=== PATIENT | male | born 1940 | race Caucasian/White ===

== ENCOUNTER 2019-03-02 09:51 | Inpatient (IN) | payer MEDICARE, BC ==
[~2019-03-02] VITALS: Ht 177.8 cm; Wt 97.7 kg
[2019-03-02 10:26] LABS: BASOPHILS % (AUTO) 0.7 % (0-1); EOSINOPHILS # (AUTO) 0.1 X10'3 (0-0.9); EOSINOPHILS % (AUTO) 2.6 % (0-6); HEMOGLOBIN 14.3 g/dl (14.0-17.9); LYMPHOCYTES # (AUTO) 1.1 X10'3 (1.1-4.8); LYMPHOCYTES % (AUTO) 18.6 % (21-51); MEAN CORPUSCULAR HEMOGLOBIN 31.6 PG (27.0-31.0); MEAN CORPUSCULAR HGB CONC 32.5 g/dL (33.0-36.5); MEAN CORPUSCULAR VOLUME 97.1 FL (78-98); MEAN PLATELET VOLUME 8.6 FL (7.4-10.4); MONOCYTES # (AUTO) 0.7 X10'3 (0-0.9); MONOCYTES % (AUTO) 12.9 % (2-12); NEUTROPHILS # (AUTO) 3.7 X10'3 (1.8-7.7); NEUTROPHILS % (AUTO) 65.2 % (42-75); PLATELET COUNT 193 X10'3 (140-440); RED BLOOD COUNT 4.53 X10'6 (4.70-6.10); RED CELL DISTRIBUTION WIDTH 13.5 % (11.5-14.5); WHITE BLOOD COUNT 5.7 X10'3 (4.5-11.0)
[2019-03-02 10:36] LABS: PARTIAL THROMBOPLASTIN TIME 31 SECONDS (22-32)
--- NOTE | 2019-03-02 10:47 | NUR ---
pt getting xray, ct done
--- NOTE | 2019-03-02 10:48 | NUR ---
pt going to CTA
--- NOTE | 2019-03-02 10:50 | NUR ---
arrived to bed 3 for stroke alert. At this time pt is symptom free, nihss 0. Discussed with Dr. Pedraza, will hold off on CTA until after neuro consult.
--- NOTE | 2019-03-02 10:53 | NUR ---
md states pt doesnt need monitoring going to cta. pt is stable
[2019-03-02 11:10] LABS: ALANINE AMINOTRANSFERASE 37 U/L (12-78); ALBUMIN/GLOBULIN RATIO 1.1 (1.1-1.5); ALKALINE PHOSPHATASE 45 IU/L (46-116); ANION GAP 8 (8-16); ASPARTATE AMINO TRANSFERASE 22 U/L (10-37); BILIRUBIN,TOTAL 0.5 MG/DL (0.1-1.0); BLOOD UREA NITROGEN 24 MG/DL (7-18); BUN/CREATININE RATIO 22.2 (5.4-32.0); CALCIUM 9.2 MG/DL (8.5-10.1); CHLORIDE 107 MMOL/L (99-107); CREATININE 1.08 MG/DL (0.60-1.10); GLUCOSE 106 MG/DL (70-104); POTASSIUM 3.8 MMOL/L (3.5-5.1); SODIUM 143 MMOL/L (135-145); TOTAL CARBON DIOXIDE 27.8 MMOL/L (24-32); TOTAL PROTEIN 7.5 G/DL (6.4-8.2); eGFR 66 ML/MIN
--- NOTE | 2019-03-02 11:15 | NUR ---
Telemedicine consult with [facility] Dr. Rider. NIHSS remains 0. He recommends admission with routine workup for these TIA symptoms. ASA, MRI, MRA, requested. CTA only needed if change in symptoms or unable to obtain MRA.
--- NOTE | 2019-03-02 11:26 | NUR ---
neuro consulting current elevating pt
[2019-03-02] MEDS ORDERED: aspirin 325mg tablet PO ONE (11:55)
[2019-03-02] MEDS ORDERED: ATEN50TA PO ×2 (12:15→14:00)
[2019-03-02] MEDS ORDERED: acetaminophen 325mg tablet PO PRN ×2 (12:50)
[2019-03-02] MEDS ORDERED: HYDROcodone/acetaminophen 5mg/325mg tablet PO PRN (12:50)
[2019-03-02] MEDS ORDERED: mag hydrox/Alum hydrox/simeth 30ml oral suspension PO PRN (12:50)
[2019-03-02] MEDS ORDERED: ondansetron/PF 4mg/2ml inj IV PRN (12:50)
[2019-03-02] MEDS ORDERED: magnesium hydroxide 30ml (MOM) UD suspension PO PRN (12:50)
[2019-03-02 13:24] LABS: CHOLESTEROL 163 MG/DL (0-200); HDL CHOLESTEROL 54 MG/DL (35-60); LDL CHOLESTEROL 101 MG/DL (50-100); TRIGLYCERIDES 71 MG/DL (20-135)
[2019-03-02 22:00] VITALS: BP 150/68
[2019-03-03 02:00] VITALS: BP 127/69
[2019-03-03 06:00] VITALS: BP 143/64
[2019-03-03 06:18] LABS: BASOPHILS % (AUTO) 0.6 % (0-1); EOSINOPHILS # (AUTO) 0.2 X10'3 (0-0.9); HEMATOCRIT 39.6 % (42.0-52.0); HEMOGLOBIN 13.6 g/dl (14.0-17.9); LYMPHOCYTES % (AUTO) 21.3 % (21-51); MEAN CORPUSCULAR HEMOGLOBIN 32.7 PG (27.0-31.0); MEAN CORPUSCULAR HGB CONC 34.3 g/dL (33.0-36.5); MEAN CORPUSCULAR VOLUME 95.4 FL (78-98); MEAN PLATELET VOLUME 8.8 FL (7.4-10.4); MONOCYTES # (AUTO) 0.6 X10'3 (0-0.9); MONOCYTES % (AUTO) 12.9 % (2-12); NEUTROPHILS # (AUTO) 2.8 X10'3 (1.8-7.7); NEUTROPHILS % (AUTO) 61.2 % (42-75); PLATELET COUNT 151 X10'3 (140-440); RED BLOOD COUNT 4.15 X10'6 (4.70-6.10); RED CELL DISTRIBUTION WIDTH 13.4 % (11.5-14.5); WHITE BLOOD COUNT 4.5 X10'3 (4.5-11.0)
[2019-03-03 06:19] LABS: ALBUMIN 3.2 G/DL (3.4-5.0); ANION GAP 7 (8-16); BLOOD UREA NITROGEN 19 MG/DL (7-18); BUN/CREATININE RATIO 18.3 (5.4-32.0); CHLORIDE 107 MMOL/L (99-107); CREATININE 1.04 MG/DL (0.60-1.10); GLUCOSE 97 MG/DL (70-104); POTASSIUM 4.1 MMOL/L (3.5-5.1); SODIUM 140 MMOL/L (135-145); TOTAL CARBON DIOXIDE 25.9 MMOL/L (24-32); eGFR 69 ML/MIN
--- NOTE | 2019-03-03 06:27 | NUR ---
Report given to Flaquita PATEL.
--- NOTE | 2019-03-03 07:11 | NUR ---
RECEIVED REPORT FROM NOELLE Gómez RN
[2019-03-03] MEDS ORDERED: chlorthalidone 25mg tablet PO SCH (08:00)
[2019-03-03] MEDS ORDERED: aspirin 81mg tablet.DR PO SCH (08:00)
[2019-03-03] MEDS ORDERED: CHLO25TA11 PO (11:22)
[2019-03-03] MEDS ORDERED: ASPI-1071 PO (11:22)
[2019-03-03] MEDS ORDERED: ATOR20TA PO (11:23)
--- NOTE | 2019-03-03 12:28 | NUR ---
Patient was discharged iv and tele was removed from patient. patient was alert and oriented at time of discharge
== END 2019-03-03 12:15 | disposition home or self-care (01) | DRG 556 ==
LOC: ER 09:51 → ED HOLD 16:12 → ORTHO 4S 18:11
PROVIDERS: ADMIT Hospitalist; ATTEND Family Medicine
DX: M62.81 Muscle weakness (generalized) (principal); I10 Essential (primary) hypertension; I44.0 Atrioventricular block, first degree; T44.7X5A Adverse effect of beta-adrenoreceptor antagonists, initial encounter; G89.29 Other chronic pain; M54.9 Dorsalgia, unspecified; Z79.82 Long term (current) use of aspirin; Y92.89 Other specified places as the place of occurrence of the external cause
CPT/HCPCS: 36415; 70450; 70544; 70551; 71045; 80048; 80053; 80061; 85025; 85610; 85730; 87070; 93005; 93306; 93880; 97162; 97530; 99285; G0378